=== PATIENT | male | born 1950 | race Two or more races ===

== ENCOUNTER 2019-01-13 13:42 | Emergency (ER) | payer MEDICARE, MEDICAID ==
[~2019-01-13] VITALS: Ht 167.6 cm; Wt 84.8 kg
--- NOTE | 2019-01-13 13:47 | NUR ---
BIBSELF C/O R SIDED SHARP CHEST PAIN STARTED 630AM TODAY. NON-RADIATING. 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 PATIENT AOX4, NAD NOTED. CHANGED TO [facility], PROVIDED W WARM BLANKET, AWAITING MD BELTRAN.
--- NOTE | 2019-01-13 14:04 | NUR ---
DR CHAWLA AT BEDSIDE
--- NOTE | 2019-01-13 14:10 | NUR ---
BLOOD COLLECTED AND SENT TO LAB
[2019-01-13 14:13] LABS: BASOPHILS % (AUTO) 0.7 % (0.0-2.0); EOSINOPHILS % (AUTO) 2.6 % (0.0-6.0); HEMATOCRIT 39 % (39-51); HEMOGLOBIN 13.1 g/dL (13.5-17.5); LYMPHOCYTES # (AUTO) 1.7 /CMM (0.8-4.8); LYMPHOCYTES % (AUTO) 24.6 % (20.0-44.0); MEAN CORPUSCULAR HGB CONC 33 g/dl (31.0-36.0); MEAN CORPUSCULAR VOLUME 83 fL (80-96); MONOCYTES # (AUTO) 0.5 /CMM (0.1-1.30); MONOCYTES % (AUTO) 6.6 % (2.0-12.0); NEUTROPHILS # (AUTO) 4.5 /CMM (1.8-8.9); NEUTROPHILS % (AUTO) 65.5 % (43.0-81.0); PLATELET COUNT (AUTO) 350 /CMM (150-450); RED BLOOD CELL COUNT(AUTO) 4.73 MIL/uL (4.5-6.0); WHITE BLOOD COUNT (AUTO) 6.9 K/uL (4.3-11.0)
--- NOTE | 2019-01-13 14:13 | NUR ---
NOVELTY DIPPER AT BEDSIDE
--- NOTE | 2019-01-13 14:17 | NUR ---
CRUSHER SETTER AT BEDSIDE
[2019-01-13 14:18] LABS: CARBON DIOXIDE 29 mmol/L (21-32); CHLORIDE 105 mmol/L (98-107); CREATININE 0.9 mg/dL (0.6-1.3); GLUCOSE 221 mg/dL (74-106); POTASSIUM 4.1 mmol/L (3.5-5.1); SODIUM SERUM 141 mmol/L (136-145); UREA NITROGEN, BLOOD 14 mg/dL (7-18)
--- NOTE | 2019-01-13 18:05 | NUR ---
IV removed. Catheter intact and site benign. Pressure and 4x4 applied to site. No bleeding noted. Patient discharged to home in stable condition. Assisted to waiting room to wait for a cab. Written and verbal after care instructions given. Patient verbalizes understanding of instruction.
[2019-01-13 18:11] VITALS: BP 116/68
== END 2019-01-13 18:12 | disposition home or self-care (01) ==
LOC: ER 13:46
DX: R07.89 Other chest pain (principal); J84.112 Idiopathic pulmonary fibrosis; E11.9 Type 2 diabetes mellitus without complications; Z98.890 Other specified postprocedural states; Z85.038 Personal history of other malignant neoplasm of large intestine
CPT/HCPCS: 36415; 71045; 80048; 84484 ×2; 85025; 93005 ×2; 99284; A4216